=== PATIENT | female | born 1960 | race Asian ===

== ENCOUNTER 2018-05-09 06:16 | Inpatient (IN) | payer BC ==
[~2018-05-09] VITALS: Ht 157.5 cm; Wt 65.2 kg
[2018-05-09 08:16] LABS: BASOPHILS % (AUTO) 0.9 % (0.0-2.0); EOSINOPHILS % (AUTO) 2.8 % (1.0-6.0); HEMATOCRIT 41.3 % (36-46); LYMPHOCYTES % (AUTO) 22.6 % (22.0-44.0); MEAN CORPUSCULAR HEMOGLOBIN 30.7 pg (26.0-34.0); MEAN CORPUSCULAR HGB CONC 33.9 G/dL (31.0-37.0); MEAN CORPUSCULAR VOLUME 90 fL (80-100); MONOCYTES # (AUTO) 0.8 K/uL (0.1-1.0); MONOCYTES % (AUTO) 8.8 % (2.0-9.0); NEUTROPHILS # (AUTO) 5.6 K/uL (1.8-7.7); NEUTROPHILS % (AUTO) 64.9 % (40.0-70.0); PLATELET COUNT (AUTO) 306 K/uL (150-450); RED BLOOD CELL COUNT(AUTO) 4.58 MIL/uL (4.00-5.20); RED CELL DISTRIBUTION WIDTH 12.9 % (11.5-14.5)
[2018-05-09 08:22] LABS: INFLUENZA TYPE A NEGATIVE FOR TYPE A (NEGATIVE); INFLUENZA TYPE B NEGATIVE FOR TYPE B (NEGATIVE)
[2018-05-09 08:43] LABS: ANION GAP 6 mmol/L (8-16); CALCIUM, TOTAL 9.2 mg/dL (8.8-10.5); CARBON DIOXIDE 29 mmol/L (22-29); CHLORIDE 102 mmol/L (98-107); CREATININE 0.57 mg/dL (0.60-1.30); GLOMERULAR FILTR. RATE CALC > 60 mL/min (>60); GLUCOSE,RANDOM 93 mg/dL (70-110); SODIUM SERUM 137 mmol/L (136-145); UREA NITROGEN, BLOOD 11 mg/dL (7-18)
[2018-05-09 08:47] LABS: B-TYPE NATRIURETIC PEPTIDE 52 pg/mL (0-100)
[2018-05-09] MEDS ORDERED: IOVERSOL 320 MG/ML 100 ML VIAL ONE (08:48)
[2018-05-09] MEDS ORDERED: SODIUM CHLORIDE 0.9% 100 ML ONE (08:48)
[2018-05-09 09:13] LABS: ALANINE AMINOTRANSFERASE 21 U/L (12-78); ALBUMIN 3.1 g/dL (3.4-5.0); ALKALINE PHOSPHATASE 66 U/L (46-116); ASPARTATE AMINOTRANSFERASE 15 U/L (15-37); BILIRUBIN,TOTAL 0.3 mg/dL (0.1-1.0); CREATINE KINASE, TOTAL ONLY 75 U/L (26-192); TOTAL PROTEIN, SERUM 7.8 g/dL (6.4-8.2)
[2018-05-09] MEDS ORDERED: CefTRIAXone 1 GM/DEXTROSE 50 ML IV ONE (12:15)
[2018-05-09] MEDS ORDERED: AZITHROMYCIN 500 MG/NS 250 ML IV ONE (12:15)
[2018-05-09 14:56] LABS: APPEARANCE,URINE CLEAR (CLEAR); BILIRUBIN,URINE NEGATIVE (NEGATIVE); GLUCOSE, URINE (UA) NEGATIVE (NEGATIVE); KETONES,URINE NEGATIVE (NEGATIVE); LEUKOCYTE ESTERASE ,URINE NEGATIVE (NEGATIVE); NITRATE,URINE NEGATIVE (NEGATIVE); OCCULT BLOOD,URINE NEGATIVE (NEGATIVE); PH,URINE 5.5 (5.0-8.0); PROTEIN,URINE NEGATIVE (NEGATIVE); UROBILINOGEN,URINE 0.2 mg/dL (<=1.0)
[2018-05-09] MEDS ORDERED: ONDANSETRON HCL 4 MG/2 ML VIAL IVP PRN ×2 (15:30→18:45)
[2018-05-09] MEDS ORDERED: ACETAMINOPHEN 325 MG TABLET PO PRN (15:30)
[2018-05-09] MEDS ORDERED: 0.9% SODIUM CHLORIDE 10 ML SYRINGE IVP PRN ×2 (15:30→18:45)
[2018-05-09 16:19] VITALS: BP 117/72
[2018-05-09] MEDS ORDERED: OxyCODONE HCL/ACETAMINOPHEN 5-325 MG TABLET PO PRN ×2 (18:45)
[2018-05-09] MEDS: PANTOPRAZOLE SODIUM 40 MG/VIAL IVP SCH (20:18)
[2018-05-09] MEDS: DOCUSATE SODIUM 100 MG CAPSULE PO SCH (20:18)
[2018-05-09 20:23] VITALS: BP 124/65
[2018-05-09 23:26] VITALS: BP 121/67
[2018-05-10 03:52] VITALS: BP 130/71
[2018-05-10 06:43] LABS: BASOPHILS % (AUTO) 0.7 % (0.0-2.0); EOSINOPHILS % (AUTO) 4.7 % (1.0-6.0); HEMATOCRIT 40.2 % (36-46); HEMOGLOBIN 13.4 g/dL (12.0-16.0); LYMPHOCYTES # (AUTO) 1.7 K/uL (1.0-4.8); LYMPHOCYTES % (AUTO) 29.9 % (22.0-44.0); MEAN CORPUSCULAR HEMOGLOBIN 30.2 pg (26.0-34.0); MEAN CORPUSCULAR HGB CONC 33.3 G/dL (31.0-37.0); MEAN CORPUSCULAR VOLUME 91 fL (80-100); MONOCYTES # (AUTO) 0.6 K/uL (0.1-1.0); MONOCYTES % (AUTO) 11.2 % (2.0-9.0); NEUTROPHILS # (AUTO) 3.1 K/uL (1.8-7.7); NEUTROPHILS % (AUTO) 53.5 % (40.0-70.0); PLATELET COUNT (AUTO) 299 K/uL (150-450); RED BLOOD CELL COUNT(AUTO) 4.44 MIL/uL (4.00-5.20); RED CELL DISTRIBUTION WIDTH 13.2 % (11.5-14.5)
[2018-05-10 07:08] LABS: ALANINE AMINOTRANSFERASE 21 U/L (12-78); ALBUMIN 2.8 g/dL (3.4-5.0); ALKALINE PHOSPHATASE 55 U/L (46-116); ANION GAP 4 mmol/L (8-16); ASPARTATE AMINOTRANSFERASE 16 U/L (15-37); BILIRUBIN,TOTAL 0.4 mg/dL (0.1-1.0); CALCIUM, TOTAL 9.2 mg/dL (8.8-10.5); CARBON DIOXIDE 33 mmol/L (22-29); CHLORIDE 103 mmol/L (98-107); CREATININE 0.65 mg/dL (0.60-1.30); GLOMERULAR FILTR. RATE CALC > 60 mL/min (>60); GLUCOSE,RANDOM 88 mg/dL (70-110); POTASSIUM 4.4 mmol/L (3.5-5.1); SODIUM SERUM 140 mmol/L (136-145); TOTAL PROTEIN, SERUM 7.4 g/dL (6.4-8.2); UREA NITROGEN, BLOOD 13 mg/dL (7-18)
[2018-05-10 07:36] VITALS: BP 131/64
[2018-05-10] MEDS: PANTOPRAZOLE SODIUM 40 MG/VIAL IVP SCH (08:11)
[2018-05-10] MEDS: DOCUSATE SODIUM 100 MG CAPSULE PO SCH ×2 (08:11→21:00)
[2018-05-10] MEDS ORDERED: SODIUM CHLORIDE 0.9% 250 ML IV ONE (10:43)
[2018-05-10] MEDS: CefTRIAXone 1 GM/DEXTROSE 50 ML IV SCH (10:51)
[2018-05-10 11:40] VITALS: BP 131/74
[2018-05-10] MEDS: AZITHROMYCIN 500 MG/NS 250 ML IV SCH (11:47)
[2018-05-10 15:21] VITALS: BP 124/76
[2018-05-10 19:45] VITALS: BP 119/75
[2018-05-10 23:24] VITALS: BP 123/57
[2018-05-10 23:34] LABS: C.DIFF GDH ANTIGEN, Stool Negative (Negative); C.DIFF TOXINS A&B, Stool Negative (Negative)
[2018-05-11 04:16] VITALS: BP 122/63
[2018-05-11 07:39] VITALS: BP 114/57
[2018-05-11] MEDS: DOCUSATE SODIUM 100 MG CAPSULE PO SCH ×2 (07:52→20:03)
[2018-05-11] MEDS: PANTOPRAZOLE SODIUM 40 MG/VIAL IVP SCH (08:31)
[2018-05-11 11:47] VITALS: BP 145/53
[2018-05-11] MEDS: CefTRIAXone 1 GM/DEXTROSE 50 ML IV SCH (12:38)
[2018-05-11] MEDS: AZITHROMYCIN 500 MG/NS 250 ML IV SCH (12:38)
[2018-05-11 18:50] VITALS: BP 140/84
[2018-05-11 20:25] VITALS: BP 132/76
[2018-05-12 00:20] VITALS: BP 123/76
[2018-05-12 04:15] VITALS: BP 111/68
[2018-05-12 07:00] VITALS: BP 116/70
[2018-05-12] MEDS: DOCUSATE SODIUM 100 MG CAPSULE PO SCH (07:52)
[2018-05-12] MEDS: PANTOPRAZOLE SODIUM 40 MG/VIAL IVP SCH (07:54)
[2018-05-12] MEDS ORDERED: SODIUM CHLORIDE 0.9% 500 ML IV ONE (09:03)
[2018-05-12 11:07] VITALS: BP 133/68
[2018-05-12] MEDS: CefTRIAXone 1 GM/DEXTROSE 50 ML IV SCH (11:35)
[2018-05-12] MEDS: AZITHROMYCIN 500 MG/NS 250 ML IV SCH (12:20)
[2018-05-12 15:23] VITALS: BP 128/72
[2018-05-12] MEDS ORDERED: LEVO250 PO (17:26)
== END 2018-05-12 18:20 | disposition home or self-care (01) | DRG 193 ==
LOC: EMS 06:21 → 6N 14:22 → 5N 05-11 19:10
PROVIDERS: ADMIT Internal Medicine; ATTEND Internal Medicine
PROC: 3E0234Z Introduction of Serum, Toxoid and Vaccine into Muscle, Percutaneous Approach (ICD-10-PCS; principal; 2018-05-12)
DX: J18.1 Lobar pneumonia, unspecified organism (principal); E43 Unspecified severe protein-calorie malnutrition; J94.8 Other specified pleural conditions; J47.0 Bronchiectasis with acute lower respiratory infection; R91.8 Other nonspecific abnormal finding of lung field; Z68.27 Body mass index [BMI] 27.0-27.9, adult; J47.9 Bronchiectasis, uncomplicated; Z86.11 Personal history of tuberculosis; J98.4 Other disorders of lung; I70.0 Atherosclerosis of aorta; Z77.22 Contact with and (suspected) exposure to environmental tobacco smoke (acute) (chronic); Z23 Encounter for immunization
CPT/HCPCS: 71260; 87015; 87040; 87206; 87324; 87449; 87804; 90686; 93005; 96365; 96368; C9113; G0378; J0456; J0696; J7040; J7050